=== PATIENT | female | born 1985 | race Caucasian/White ===

== ENCOUNTER 2017-02-03 10:52 | Emergency (ER) | payer MEDICAID ==
--- NOTE | 2017-02-03 11:16 | ED Physician Chart ---
ED Chief Complaint/HPI - Patient Information Date Seen:: 02/03/17 Time Seen:: 11:05 Chief Complaint:: Suprabic pain for about 5 weeks. History of Present Illness:: Pt came in by private auto for the above reason. Pt states that she was seen at another ER about one week ago and was diagnosed to have UTI. Pt just completed a course of antibiotic a few days ago. Pain is characterized as burning, intermittent, and ?radiation to back. No fever. No N/V/D. Last BM this morning, normal in color/consistency. No hematochezia or melena. No lightheadedness. No vaginal bleeding or discharge. Pt currently denies any dysuria, urgency or frequency with urination. No gross hematuria. Pain can be precipitated and aggravated with food ingestion, and improved with lying on right side. No anorexia. LNMP 01/20/17. Allergies:: Allergies Allergy/AdvReac Type Severity Reaction Status Date / Time No Known Allergies Allergy Verified 02/03/17 10:57 Vitals:: see Nurse Note. Historian:: Patient Family MD/PCP:: Dr. Jauregui LMP:: 01/27/17 Review:: Nurse's Note Reviewed ED Review of Systems - Review of Systems General/Constitutional: No fever, No chills, No weight loss, No weakness, No diaphoresis, No edema, No loss of appetite Skin: No skin lesions, No rash, No bruising Head: No headache, No light-headedness Eyes: No loss of vision, No pain, No diplopia ENT: No earache, No nasal drainage, No sore throat, No tinnitus Neck: No neck pain, No swelling, No thyromegaly, No stiffness, No mass noted Cardio Vascular: No chest pain, No palpitations, No edema Pulmonary: No SOB, No wheezing GI: No nausea, No vomiting, No diarrhea, Pain, No melena, No hematochezia, No constipation, No hematemesis G/U: No dysuria, No frequency, No hematuria Grinder Outside Diameter: No vaginal discharge, No abnormal vaginal bleed Musculoskeletal: No bone or joint pain, No back pain, No muscle pain Endocrine: No polyuria, No polydipsia Psychiatric: No prior psych history Hematopoietic: No bruising, No lymphadenopathy Allergic/Immuno: No urticaria, No angioedema Neurological: No syncope, No focal symptoms, No weakness, No paresthesia, No headache, No dizziness, No confusion ED Past Medical History - Past Medical History Past Medical History: HTN, DM Social History: Non Smoker, No Alcohol, No Drug Use, , Other (lives with her .) Employment:: unemployed. Surgical History: Cholecystectomy (Laparoscopic cholecystectomy in 2010.) Psychiatricy History: None Medication: Reviewed Family Medical History - Family Member Paternal Grandfather Ethnicity: Living Status: Still Living Hx Family Hypertension: Yes Hx Family Diabetes: Yes Father Ethnicity: Hx Family Diabetes: Yes Other Medical History: denies family medical hx Mother Ethnicity: Unknown Living Status: Still Living Hx Family Cancer: No Hx Family Coronary Artery Disease: No Hx Family Congestive Heart Failure: No Hx Family Hypertension: No Hx Family Stroke: No Hx Family Diabetes: Yes Hx Family Seizures: No Hx Family Dementia: No Hx Family AIDS: No Hx Family HIV: No Hx Family COPD: No Hx Family Hepatitis: No Hx Family Psychiatric Problems: No Hx Family Tuberculosis: No ED Physical Exam - Physical Examination General/Constitutional: Awake, Well-developed, well-nourished, Alert, No distress, GCS 15, Non-toxic appearing, Ambulatory Other Gen/Cons comments:: Breathes comfortably, speaks clearly, interacts normally, and ambulates without difficulty. Head: Atraumatic Eyes: Lids, conjuctiva normal, PERRL, EOMI Skin: Nl inspection, No rash, No skin lesions, No ecchymosis, Well hydrated, No lymphadenopathy ENMT: External ears, nose nl, Nasal exam nl, Lips, teeth, gums nl, Oropharynx nl Neck: Nontender, Full ROM w/o pain, No nuchal rigidity, No mass, No stridor Respiratory: Nl effort/Exclusion, Clear to Auscultation, No Wheeze/Rhonchi/Rales Cardio Vascular: RRR, No murmur, gallop, rubs GI: No organomegaly, No hernia, Normal BS's, Nondistended, No mass/bruits, No McBurney tenderness Other GI comments:: Obese but soft. Tenderness at LLQ. No R/G. Rectal exam: deferred per pt's request. : No CVA tenderness Other comments:: Pelvic exam: deferred per pt's request. Extremities: No tenderness or effusion, Full ROM, normal strength in all extremities, No edema Neuro/Psych: Alert/oriented (oriented x 3), Mood normal, Normal gait, No focal deficits ED Labs/Radiology/EKG Results - Lab Results Results: Laboratory Tests 02/03/17 02/03/17 02/03/17 11:33 11:33 11:33 WBC 8.4 RBC 3.98 Hgb 12.5 Hct 35.8 L D MCV 90.1 MCH 31.3 H MCHC Differential 34.8 RDW 11.9 Plt Count 224 MPV 8.3 Neutrophils % 54.5 Lymphocytes % 37.8 Monocytes % 5.9 Eosinophils % 1.2 Basophils % 0.6 PT 10.2 INR 0.98 PTT (Actin FS) 24.3 L Sodium 135 L Potassium 4.0 Chloride 104 Carbon Dioxide 25.5 Anion Gap 9.5 BUN 11 Creatinine 0.5 L Est GFR ( Amer) > 60.0 Est GFR (Non-Af Amer) > 60.0 BUN/Creatinine Ratio 22.0 Glucose 224 H Hemoglobin A1c % Calcium 8.8 Total Bilirubin 0.3 AST 26 ALT 29 Alkaline Phosphatase 65 Total Protein 7.0 Albumin 3.7 Globulin 3.3 Albumin/Globulin Ratio 1.1 Urine Source Urine Color Urine Clarity Urine pH Ur Specific [place] Urine Protein Urine Glucose (UA) Urine Ketones Urine Blood Urine Nitrate Urine Bilirubin Urine Urobilinogen Ur Leukocyte Esterase Urine RBC Urine WBC Ur Epithelial Cells Urine Bacteria Urine Test 02/03/17 02/03/17 02/03/17 11:45 11:45 11:58 WBC RBC Hgb Hct MCV MCH MCHC Differential RDW Plt Count MPV Neutrophils % Lymphocytes % Monocytes % Eosinophils % Basophils % PT INR PTT (Actin FS) Sodium Potassium Chloride Carbon Dioxide Anion Gap BUN Creatinine Est GFR ( Amer) Est GFR (Non-Af Amer) BUN/Creatinine Ratio Glucose Hemoglobin A1c % 8.8 H Calcium Total Bilirubin AST ALT Alkaline Phosphatase Total Protein Albumin Globulin Albumin/Globulin Ratio Urine Source [place] Urine Color YELLOW Urine Clarity HAZY Urine pH 6.0 Ur Specific [place] 1.020 Urine Protein NEGATIVE Urine Glucose (UA) NEGATIVE Urine Ketones NEGATIVE Urine Blood SMALL H Urine Nitrate NEGATIVE Urine Bilirubin NEGATIVE Urine Urobilinogen 0.2 Ur Leukocyte Esterase NEGATIVE Urine RBC 5-10 H Urine WBC 0-2 Ur Epithelial Cells MANY Urine Bacteria FEW Urine Test NEGATIVE - Radiology Results Results: CT abdomen and pelvis without contrast: Hepatomegaly, food content distended stomach, s/p zeus, muticystic kidneys, large amount of fecal content, no rmal appendix, no diverticulitis, ?right ovarian cyst, ?? 1 mm left UVJ stone. Official report per Dr. Vitaly Turcios, radiologist. ED Septic Shock - . Is Septic Shock (SBP<90, OR Lactate>4 mmol\L) present?: No ED Reassessment (Disposition) - Reassessment Reassessment:: 1400 Pt has been repeatedly evaluated. She is essentially pain free at the present. Remaining lab results and CT report just became available. Lab and CT findings have been reviewed with pt. Pt requests to go home now and does not want further observation/management in hospital. Aftercare instructions have been given. Reassessment Condition:: Improved - Diagnosis Diagnosis:: Abdominal pain probably related to urolithiasis, stable and currently asymptomatic. Diabetes mellitus. Stable. - Aftercare/Follow up Instructions Aftercare/Follow-Up Instructions:: Refer to Discharge Instructions Notes:: Increase oral fluid. Abdominal pain instructions given. Strain all urines. If renal stone is isolated, save and bring to PCP or lab for chemical analysis. F/U with PCP Dr. Jauregui in one day for recheck. Return to ER immediately if condition worsens or if any further questions/problems. Medication Prescribed:: None - Patient Disposition Discharge/Transfer:: Home Time:: 14:10 Condition at Disposition:: Stable, Improved
[2017-02-03 11:39] LABS: % BASOPHILS 0.6 % (0.0-2.0); % EOSINOPHILS 1.2 % (0.0-5.0); % LYMPHOCYTES 37.8 % (20.0-50.0); % MONOCYTES 5.9 % (2.0-10.0); % NEUTROPHILS 54.5 % (40.0-80.0); HEMATOCRIT 35.8 % (41.0-60); HEMOGLOBIN 12.5 gm/dL (12-16); MEAN CELL VOLUME 90.1 fl (81-100); MEAN CORPUSCULAR HEMOGLOBIN 31.3 pg (27.0-31.0); MEAN CORPUSCULAR HGB CONC 34.8 pg (28.0-36.0); MEAN PLATELET VOLUME 8.3 fl; NEUTROPHILE ABSOLUTE 4.5 Th/cmm (1.8-8.0); PLATELET COUNT 224 Th/cmm (150-400); RED BLOOD COUNT 3.98 Mil/cmm (3.80-5.10); RED CELL DISTRIBUTION WIDTH 11.9 % (11.5-20.0); WHITE BLOOD COUNT 8.4 Th/cmm (4.8-10.8)
[2017-02-03 11:50] LABS: INR 0.98 (0.5-1.4); PROTHROMBIN TIME (TEST) 10.2 SECONDS (9.5-11.5)
[2017-02-03 11:51] LABS: URINE BILIRUBIN NEGATIVE (NEGATIVE); URINE BLOOD SMALL (NEGATIVE); URINE GLUCOSE (UA) NEGATIVE (NEGATIVE); URINE KETONE NEGATIVE (NEGATIVE); URINE PROTEIN NEGATIVE (NEGATIVE); URINE UROBILINOGEN 0.2 E.U./dL (0.2 - 1.0)
[2017-02-03 11:52] LABS: URINE COLOR YELLOW
[2017-02-03 11:54] LABS: ALB/GLOB RATIO 1.1 (1.0-1.8); ALKALINE PHOSPHATASE 65 U/L (34-104); ANION GAP 9.5 (7.0-16.0); BILIRUBIN,TOTAL 0.3 mg/dL (0.3-1.0); BUN - UREA NITROGEN 11 mg/dL (7-25); CALCIUM SERUM 8.8 mg/dL (8.6-10.3); CARBON DIOXIDE 25.5 mEq/L (21.0-31.0); CHLORIDE 104 mEq/L (98-107); CREATININE - SERUM 0.5 mg/dL (0.6-1.2); GLUCOSE 224 mg/dL (70-105); SGOT 26 U/L (13-39); SGPT/ALT 29 U/L (7-52); SODIUM SERUM 135 mEq/L (136-145)
[2017-02-03 11:56] LABS: URINE BACTERIA FEW /hpf (NONE SEEN); URINE EPITHELIAL CELLS MANY /lpf (FEW); URINE WBC 0-2 /hpf (0-5)
--- NOTE | 2017-02-04 08:08 | Diagnostic Imaging Report ---
CT scan abdomen and pelvis without intravenous contrast HISTORY: Pain Total DLP equals 845 CTDI equals 15.0 Axial sections were obtained from the xiphoid process down to the pubic symphysis. The liver exhibits a bulbous shaped left lobe that extends across the abdomen. No focal parenchymal lesions are seen. Surgical clip seen in the flaco hepatis region consistent with a prior cholecystectomy. The spleen appears normal. No focal abnormality seen within the pancreas. Multiple fatty lesions are seen scattered throughout both kidneys. The largest is situated on the left side and measures approximately 2.9 cm. Such findings may be seen in association with phakomatosis (tuberous sclerosis, neurofibromatosis, von Hippel-Lindau syndrome). No calculi or hydronephrosis. The exam of the pelvis demonstrates preservation of normal fat planes. Mild right adnexal fullness with hypodensity probably related to ovarian cystic change. No definite abnormality seen in the region of the appendix. A 1 mm calcification is noted adjacent to the urinary bladder near the ureterovesical junction. However, this appears to lie outside of the urinary tract. IMPRESSION: 1. No definite acute abnormalities 2. Findings consistent with multiple bilateral angiomyolipomas. Such findings may be seen in association with phakomatosis (tuberous sclerosis, neurofibromatosis, Von Hippel -Lindau syndrome). Correlation with history needed. 3. Status post cholecystectomy 4. Punctate calcification adjacent to the right posterior aspect of urinary bladder. This appears to lie outside of the urinary tract. 5. Mild right adnexal fullness with hypodensity probably related to ovarian cystic change
== END 2017-02-03 14:44 | disposition home or self-care (01) ==
LOC: ER 10:52
DX: R10.9 Unspecified abdominal pain (principal); E11.9 Type 2 diabetes mellitus without complications; I10 Essential (primary) hypertension
CPT/HCPCS: 99285; 96374; 74176; 36415; 85025; 85610; 81001; 83036; 81025; 80053; J1885

== ENCOUNTER 2017-06-03 20:02 | Emergency (ER) | payer MEDICAID ==
--- NOTE | 2017-06-03 20:41 | ED Physician Chart ---
ED Chief Complaint/HPI - Patient Information Date Seen:: 06/03/17 Time Seen:: 20:30 Chief Complaint:: sore throat and right earache History of Present Illness:: Patient's had a right sided sore throat and right earache for the last 4 days. She's had a cough productive of yellow sputum. No fever. Patient is 3 months . Allergies:: Allergies Allergy/AdvReac Type Severity Reaction Status Date / Time No Known Allergies Allergy Verified 06/03/17 20:21 Vitals:: Vital Signs - 8 hr 06/03/17 20:10 Temp 99.4 F HR 95 RR 18 BP 139/91 O2 Sat % 97 Historian:: Patient Review:: Nurse's Note Reviewed ED Review of Systems - Review of Systems General/Constitutional: No fever, No chills Skin: No skin lesions Head: No headache Eyes: No loss of vision ENT: Earache, Sore throat Neck: No neck pain, No swelling Cardio Vascular: No chest pain, No palpitations Pulmonary: No SOB GI: No nausea, No vomiting, No diarrhea G/U: No dysuria, No frequency Musculoskeletal: No bone or joint pain, No muscle pain Endocrine: No polyuria, No polydipsia Psychiatric: No prior psych history Hematopoietic: No bruising Allergic/Immuno: No urticaria Neurological: No syncope ED Past Medical History - Past Medical History Past Medical History: HTN, DM Family History: Diabetes Melitus, Other (cancer) Social History: Non Smoker, No Alcohol Surgical History: Cholecystectomy Psychiatricy History: None Medication: Reviewed Family Medical History - Family Member Paternal Grandfather Ethnicity: Living Status: Still Living Hx Family Hypertension: Yes Hx Family Diabetes: Yes Father Ethnicity: Hx Family Diabetes: Yes Mother Ethnicity: Unknown Living Status: Still Living Hx Family Cancer: No Hx Family Coronary Artery Disease: No Hx Family Congestive Heart Failure: No Hx Family Hypertension: No Hx Family Stroke: No Hx Family Diabetes: Yes Hx Family Seizures: No Hx Family Dementia: No Hx Family AIDS: No Hx Family HIV: No Hx Family COPD: No Hx Family Hepatitis: No Hx Family Psychiatric Problems: No Hx Family Tuberculosis: No ED Physical Exam - Physical Examination General/Constitutional: Awake, Well-developed, well-nourished, Alert, No distress Head: Atraumatic Eyes: Lids, conjuctiva normal, PERRL Skin: Nl inspection, No rash, No skin lesions, No ecchymosis ENMT: External ears, nose nl, TM canals nl, Nasal exam nl, Lips, teeth, gums nl , Oropharynx nl Other ENMT comments:: Throat looks normal Neck: No nuchal rigidity Respiratory: Nl effort/Exclusion, Clear to Auscultation, No Wheeze/Rhonchi/Rales Cardio Vascular: RRR, No murmur, gallop, rubs GI: No tenderness/rebounding/guarding, No organomegaly, No hernia, Normal BS's : No CVA tenderness Extremities: Normal digits & nails Neuro/Psych: No focal deficits Misc: No paraspinal tenderness ED Labs/Radiology/EKG Results - Lab Results Results: Laboratory Results - last 24 hr 06/03/17 20:40 Influenza A (Rapid) NEG FOR INF A Influenza B (Rapid) NEG FOR INF B ED Assessment - Assessment General Assessment: Throat checked again at 2200 and as before appeared completely normal. ED Septic Shock - . Is Septic Shock (SBP<90, OR Lactate>4 mmol\L) present?: No - <6hrs of presentation: Vital Signs: Vital Signs - 8 hr 06/03/17 20:10 Temp 99.4 F HR 95 RR 18 BP 139/91 O2 Sat % 97 ED Reassessment (Disposition) - Reassessment Reassessment Condition:: Unchanged - Diagnosis Diagnosis:: Viral pharyngitis - Aftercare/Follow up Instructions Aftercare/Follow-Up Instructions:: Refer to Discharge Instructions - Patient Disposition Discharge/Transfer:: Home Condition at Disposition:: Stable, Unchanged
[2017-06-03 21:44] LABS: INF A SCREEN NEG FOR INF A; INF B SCREEN NEG FOR INF B
[2017-06-03] MEDS ORDERED: Acetaminophen 500 MG TAB ONE (22:06)
== END 2017-06-03 22:15 | disposition home or self-care (01) ==
LOC: ER 20:02
DX: J02.8 Acute pharyngitis due to other specified organisms (principal); I10 Essential (primary) hypertension; E11.9 Type 2 diabetes mellitus without complications; Z90.49 Acquired absence of other specified parts of digestive tract
CPT/HCPCS: 87804-TC; Z7502; Z7610